=== PATIENT | female | born 1960 | race Caucasian/White ===

== ENCOUNTER 2021-08-16 16:15 | Emergency (ER) | payer OTHER ==
[~2021-08-16] VITALS: Ht 162.6 cm; Wt 86.0 kg
[~2021-08-16 16:15] MED LIST: ASPIRIN ADULT L81 M1; ASPIRIN LOW DOS81 M2 PO; BLOOD PRESSURE MED; CYANOCOBALAM1000 MCG IJ; CYANOCOBALAMIN; FERRAPLUS 90 PO; HYDROCHLOR12.5 MG/CA PO; HYDROCHLOROT12.5 M1 PO; KEFLEX500 MG PO; METOPROL TAR25 MG PO; METOPROL TAR50 MG PO; PRILOSEC20 MG PO; VITAMIN B-12500 MCG PO
[2021-08-16 16:55] LABS: HEMATOCRIT 38.6 % (37.0-47.0); HEMOGLOBIN 12.4 g/dl (12.0-16.0); IMMATURE GRANULOCYTES 0.6 % (0.0-5.0); MEAN CELL VOLUME 88.9 fL CALC (80.0-100.0); MEAN CORPUSCULAR HGB 28.6 pG CALC (26.0-32.0); MEAN CORPUSCULAR HGB CONC 32.1 g/dL CAL (32.0-36.0); NEUT# 7.07 thou/uL (2.00-7.15); RED BLOOD COUNT 4.34 mill/uL (4.20-5.60); RED CELL DISTRI WIDTH 12.8 % (11.5-15.5); URINE BLOOD DIPSTICK MODERATE (NEGATIVE); URINE COLOR YELLOW; URINE GLUCOSE - DIPSTICK 100 mg/dL (NEGATIVE); URINE KETONE NEGATIVE (NEGATIVE); URINE PROTEIN - DIPSTICK >=300 mg/dL (NEG-TRACE); URINE SPECIFIC GRAVITY 1.025
[2021-08-16 16:56] LABS: URINE BILIRUBIN - DIPSTICK NEGATIVE (NEGATIVE); URINE NITRITE - DIPSTICK POSITIVE (Negative)
[2021-08-16 16:57] LABS: URINE LEUK ESTERASE MODERATE (NEGATIVE)
[2021-08-16 16:59] LABS: URINE BACTERIA FEW hpf; URINE SQUAMOUS EPITHELIAL CELL FEW EPI/hpf (0-FEW); URINE WBC >100 WBC/hpf (0-5)
[2021-08-16 17:29] LABS: ALBUMIN 4.4 g/dL (3.2-5.0); ALKALINE PHOSPHATASE 244 u/l (38-126); AMYLASE 70 u/l (30-110); ANION GAP 15 (6-22 (CALC)); BILIRUBIN, TOTAL 0.8 mg/dL (0.0-1.4); BUN 14 mg/dL (8-23); BUN/CREATININE RATIO 13 (12-20 (CALC)); CARBON DIOXIDE 25 mmol/l (22-30); CHLORIDE 103 mmol/l (95-108); GFR 56 ML/MIN (>=60 (CALC)); GFR FOR AFR.AMER. > 60 ML/MIN (>=60 (CALC)); LIPASE 95 u/l (23-300); POTASSIUM 4.2 mmol/l (3.5-5.1); SGOT/AST 55 u/l (9-36); SODIUM 139 mmol/l (137-146); TOTAL PROTEIN 7.3 g/dL (6.3-8.2)
[2021-08-16] MEDS ORDERED: HYDROCO/APAP1 TA9 PO (18:23)
[2021-08-16] MEDS ORDERED: KEFLEX500 MG PO (18:23)
[2021-08-16] MEDS ORDERED: ZOFRAN4 MG/TAB PO (18:23)
[2021-08-16 18:43] VITALS: BP 128/63
== END 2021-08-16 18:50 | disposition home or self-care (01) | DRG 690 ==
LOC: ED 16:15
DX: N39.0 Urinary tract infection, site not specified (principal); B96.20 Unspecified Escherichia coli [E. coli] as the cause of diseases classified elsewhere; N20.0 Calculus of kidney; I10 Essential (primary) hypertension; E78.5 Hyperlipidemia, unspecified; K21.9 Gastro-esophageal reflux disease without esophagitis